=== PATIENT | male | born 1965 | race African-American/Black ===

== ENCOUNTER 2020-12-08 12:12 | Emergency (ER) | payer SELFPAY ==
[~2020-12-08] VITALS: Ht 170.2 cm; Wt 73.0 kg
[2020-12-08] MEDS ORDERED: IBUPROFEN 600MG TABLET PO ONE (13:45)
[2020-12-08 14:38] VITALS: BP 120/78
== END 2020-12-08 14:39 | disposition home or self-care (01) ==
LOC: ER 12:21
DX: S99.811A Other specified injuries of right ankle, initial encounter (principal); M54.2 Cervicalgia; V43.52XA Car driver injured in collision with other type car in traffic accident, initial encounter; Y93.89 Activity, other specified; Y92.488 Other paved roadways as the place of occurrence of the external cause
CPT/HCPCS: 72040; 72100; 73610; 99284